=== PATIENT | male | born 1970 | race Two or more races ===

== ENCOUNTER 2023-07-02 00:12 | Emergency (ER) | payer BC, OTHER ==
[~2023-07-02] VITALS: Ht 180.3 cm; Wt 106.8 kg
[2023-07-02 01:12] LABS: Basophils # (auto) 0 10 ^3/uL (0-0.2); Basophils % (auto) 0.9 % (0.0-2.0); Eosinophils # (auto) 0.2 10 ^3/uL (0-0.8); Hematocrit 37.2 % (41.0-53.0); Lymphocytes # (auto) 1.9 10 ^3/uL (0.4-5.4); Lymphocytes % (auto) 36.6 % (10.0-50.0); Mean Corpuscular Hemoglobin 30.2 pg (28.0-32.0); Mean Corpuscular Hgb Conc. 32.3 g/dL (32.0-36.0); Mean Corpuscular Volume 93.7 fL (80.0-100.0); Monocytes # (auto) 0.8 10 ^3/uL (0-1.3); Monocytes % (auto) 14.6 % (0.0-12.0); Neutrophils # (auto) 2.3 10 ^3/uL (1.6-8.6); Neutrophils % (auto) 44.9 % (37.0-80.0); Nucleated Red Blood Cells % 0.1 %; Red Blood Cells 3.97 10^6/uL (4.5-5.90); Red Cell Distribution Width 16.3 % (11.8-14.3); White Blood Cell 5.2 10^3/uL (4.4-10.8)
[2023-07-02 01:29] LABS: Alanine Aminotransferase 41 U/L (7-40); Albumin 4.9 g/dL (3.2-4.8); Alkaline Phosphatase 72 U/L (46-116); Anion Gap 7 (5-15); Aspartate Aminotransferase 92 U/L (13-40); Bilirubin, Total 0.4 mg/dL (0.2-1.0); Blood Urea Nitrogen 16 mg/dL (9-23); Calcium 9.1 mg/dL (8.7-10.4); Carbon Dioxide 25 mmol/L (20-30); Chloride 109 mmol/L (98-107); Glucose 92 mg/dL (74-106); Magnesium 1.9 mg/dL (1.6-2.6); Potassium 4.4 mmol/L (3.5-5.1); Sodium 141 mmol/L (136-145)
[2023-07-02 01:48] LABS: Erythrocyte Sedimentation Rate 6 mm/hr (0-20)
[2023-07-02] MEDS ORDERED: HYDROcodone-ACET 5/325MG TAB PO ONE (02:00)
[2023-07-02] MEDS ORDERED: NITROGLYCERIN 0.4 MG SL TAB SL ONE (02:15)
[2023-07-02] MEDS ORDERED: IOHEXOL 350 MG/ML 100ML IJ ONE (02:24)
[2023-07-02] MEDS ORDERED: MECLIZINE HCL 25 MG TAB PO ONE (04:00)
[2023-07-02] MEDS ORDERED: KETOROLAC TROMETH 60MG/2ML VIAL IV ONE (04:00)
[2023-07-02] MEDS ORDERED: SODIUM CHLORIDE 0.9% 1,000 ML IV ONE (04:15)
[2023-07-02 05:10] LABS: Amphetamine Screen, Urine Neg (NEGATIVE); Barbiturate Scree,Urine Neg (NEGATIVE); Benzodiazephine Screen, Urine Neg (NEGATIVE); Cannabinoid Screen, Urine Neg (NEGATIVE); Cocaine Screen, Urine Neg (NEGATIVE); Opiate Scree,Urine Neg (NEGATIVE); Phencyclidine Screen, Urine Neg (NEGATIVE)
[2023-07-02 05:16] LABS: Urine Bacteria NONE SEEN /hpf (None Seen); Urine Blood Negative /uL (Negative); Urine Clarity Clear (Clear); Urine Color Yellow (Yellow); Urine Protein, UAD TRACE (Negative); Urine Urobilinogen Normal (Negative); Urine WBC <1 /hpf (0 - 3); Urine pH 5.5 (5.0-8.0)
[2023-07-02 05:26] LABS: Urine Specific Gravity > 1.050 (1.001-1.035)
[2023-07-02 05:42] VITALS: BP 113/59; PULSE 51; RESP 18; TEMP 98; O2SAT 100
== END 2023-07-02 05:56 | disposition home or self-care (01) ==
LOC: ER 00:15
DX: R51.9 Headache, unspecified (principal); R42 Dizziness and giddiness; I95.9 Hypotension, unspecified
CPT/HCPCS: 36415; 70450; 70496; 71045; 80053; 80307; 81001; 83735; 84484; 85025; 85652; 93005; 96361; 96374; 99285; J1885; J7030; J8597; Q9967